=== PATIENT | female | born 1995 | race Two or more races ===

== ENCOUNTER 2019-02-26 17:54 | Emergency (ER) | payer OTHER ==
[~2019-02-26] VITALS: Ht 167.6 cm; Wt 117.9 kg
[2019-02-26 18:02] VITALS: BP 132/84
--- NOTE | 2019-02-26 18:05 | NUR ---
ED Nurse Note: pt walked in to ED due to "right pelvic pain" since yesterday. per pt, had left ovary removal surgery on November and pain is similar to that. pt crying during the triage for pain. AAO x4. respirations even and non-labored noted. skin warm to touch. will wait for the further order.
[2019-02-26] MEDS ORDERED: HYDROcodone/Acetamin 5/325 tab ORAL ONE (18:30)
--- NOTE | 2019-02-26 18:57 | Emergency Room Report ---
History of Present Illness General Chief Complaint: Female Urogenital Problems Source: Medical Record Present Illness HPI 23 YO female right intermittent 02/25 in severity right adnexal pain and ttp x 2 days. hx of left salpingectomy s/p left ovarian torsion in November 2018. Denies and denies suspicion of . Denies N/V/F/C. Denies constipation or diarrhea. Denies vaginal D/C or bleeding. Pt. denies abdominal pain or tenderness. Pt. denies dysuria, hematuria, or frequency. Pt. denies swollen tender lymph nodes, rashes, genital lesions or hx of STI. Allergies: Coded Allergies: AMOXICILLIN (Verified Allergy, Unknown, rash, 02/26/19) CLAVULANIC ACID (Verified Allergy, Unknown, rash, 02/26/19) Patient History Past Medical History: see triage record Past Surgical History: none, other - Left salpingectomy November 2018 Last Menstrual Period: 02/10/19 Now: No Reviewed Nursing Documentation: PMH: Agreed; PSxH: Agreed Nursing Documentation-PMH Past Medical History: No History, Except For Hx Asthma: Yes Review of Systems All Other Systems: negative except mentioned in HPI Physical Exam Vital Signs Date Time Temp Pulse Resp B/P (MAP) Pulse Ox O2 Delivery O2 Flow Rate FiO2 02/26/19 18:02 98.4 103 18 132/84 (100) 96 Room Air Sp02 EP Interpretation: reviewed, normal General Appearance: no apparent distress, alert, GCS 15, non-toxic Head: normocephalic, atraumatic Eyes: bilateral eye normal inspection, bilateral eye PERRL ENT: hearing grossly normal, normal voice Neck: full range of motion Respiratory: lungs clear, normal breath sounds, speaking full sentences Cardiovascular #1: regular rate, rhythm Gastrointestinal: normal bowel sounds, non tender, soft, non-distended, no guarding Rectal: deferred Genitourinary: normal inspection, no CVA tenderness, other - Right adnexal TTP , no palpable LAD Musculoskeletal: back normal, gait/station normal, normal range of motion, non- tender Neurologic: alert, oriented x3, responsive, motor strength/tone normal, sensory intact, speech normal, grossly normal Psychiatric: judgement/insight normal Skin: no rash Lymphatic: no adenopathy Medical Decision Making PA Attestation Dr. Merlos is my supervising Physician whom patient management has been discussed with. Diagnostic Impression: Primary Impression: Adnexal pain Additional Impression: Free fluid in pelvis ER Course 23 YO female right intermittent 10/10 in severity right adnexal pain and ttp x 2 days. hx of left salpingectomy s/p left ovarian torsion in November 2018. Denies and denies suspicion of . Denies N/V/F/C. Denies constipation or diarrhea. Denies vaginal D/C or bleeding. Pt. denies abdominal pain or tenderness. Pt. denies dysuria, hematuria, or frequency. Pt. denies swollen tender lymph nodes, rashes, genital lesions or hx of STI. Ddx considered but are not limited to Diverticulitis, acute appy, ovarian torsion, ectopic , PID tubo-ovarian abscess, ovarian cyst. Vital signs: are WNL, pt. is afebrile H&PE are most consistent with possible ovarian cyst, however due to presentation will r/o torsion, ectopic, and stone. ORDERS: -UA:WNL -URINE HCG:Negative -Pelvic US Complete: "Pelvic Free fluid near right ovary, normal flow to the right ovary which has normal follicles. left ovary is surgically absent." Per official radiology report- Please see report for specific details. ED INTERVENTIONS: - 60mg IM Toradol - 5mg [place] DISCHARGE: At this time pt. is stable for d/c to home. Will provide printed patient care instructions, and any necessary prescriptions. Care plan and follow up instructions have been discussed with the patient prior to discharge. Labs Test 02/26/19 20:00 Urine Color Pale yellow Urine Appearance Clear Urine pH 6 (4.5-8.0) Urine Specific [place] 1.005 (1.005-1.035) Urine Protein Negative (NEGATIVE) Urine Glucose (UA) Negative (NEGATIVE) Urine Ketones Negative (NEGATIVE) Urine Blood 2+ (NEGATIVE) Urine Nitrite Negative (NEGATIVE) Urine Bilirubin Negative (NEGATIVE) Urine Urobilinogen Normal MG/DL (0.0-1.0) Urine Leukocyte Esterase Negative (NEGATIVE) Urine RBC 0-2 /HPF (0 - 2) Urine WBC 0-2 /HPF (0 - 2) Urine Squamous Epithelial Cells Few /LPF (NONE/OCC) Urine Bacteria Few /HPF (NONE) Urine HCG, Qualitative Negative (NEGATIVE) CT/MRI/US Diagnostic Results CT/MRI/US Diagnostic Results : Imaging Test Ordered: Pelvic US Impression " Retroverted uterus normal appearance, normal endometrium, left ovary is surgically absent, trace fluid adjacent to the right ovary with normal follicles. No adnexal mass." Per official radiology report- Please see report for specific details. Last Vital Signs Date Time Temp Pulse Resp B/P (MAP) Pulse Ox O2 Delivery O2 Flow Rate FiO2 02/26/19 18:02 98.4 103 18 132/84 96 Room Air Status: improved Disposition: HOME, SELF-CARE Condition: Stable Scripts Hydrocodone Bit/Acetaminophen 5-325* (NORCO 5-325*) 1 Each Tablet 1 TAB ORAL Q6H PRN for For Pain, #3 TAB 0 Refills Prov: Elis Steen 02/26/19 Ibuprofen* (MOTRIN*) 600 Mg Tablet 600 MG ORAL THREE TIMES A DAY, #30 TAB 0 Refills Prov: Elis Steen 02/26/19 Patient Instructions: Ovarian Cyst, [id number] Additional Instructions: Take medications as directed. Follow up with a OBGYN within 3 days, even if your symptoms have resolved. Return sooner to ED if new symptoms occur, or current symptoms become worse. - Please note that this Emergency Department Report was dictated using [employer] engineer technology software, occasionally this can lead to erroneous entry secondary to interpretation by the dictation equipment. Elis Steen Feb 26, 2019 18:57
--- NOTE | 2019-02-26 19:11 | NUR ---
HAND-OFF: Report given to JOSE ANTONIO DAVIDSON.PT IN US AT THIS TIME.
--- NOTE | 2019-02-26 19:30 | NUR ---
ED Nurse Note: Patient returned from OB - Repeat urine requested and sent to lab
--- NOTE | 2019-02-26 19:51 | Diagnostic Imaging Report ---
EXAM: US Pelvis Transabdominal and Transvaginal, Complete CLINICAL HISTORY: PAIN TECHNIQUE: Real-time complete transabdominal and transvaginal pelvic ultrasound with image documentation. Transvaginal imaging was used for better evaluation of the endometrium and adnexa. COMPARISON: None FINDINGS: Uterus: Retroverted uterus measures approximately 6.7 x 3.6 x 5.7 cm. Normal appearance. Endometrium measures 4.0 mm. Right ovary: Measures 3.4 x 4.2 x 2.4 cm. Normal appearance with follicles. Normal color Doppler flow. Left ovary: Reported left oophorectomy. Other: Trace fluid adjacent to the right ovary. No adnexal mass. IMPRESSION: 1. Status post left oophorectomy. 2. Nonspecific trace fluid adjacent to the right ovary. Otherwise normal uterus and right ovary.
[2019-02-26 20:33] LABS: APPEARANCE,URINE CLEAR; BILIRUBIN, URINE NEGATIVE (NEGATIVE); COLOR,URINE PALE YELLOW; GLUCOSE, URINE (UA) NEGATIVE (NEGATIVE); KETONES,URINE NEGATIVE (NEGATIVE); LEUKOCYTE ESTERASE ,URINE NEGATIVE (NEGATIVE); NITRITE,URINE NEGATIVE (NEGATIVE); PH,URINE 6 (4.5-8.0); PROTEIN,URINE NEGATIVE (NEGATIVE); UROBILINOGEN,URINE NORMAL MG/DL (0.0-1.0)
[2019-02-26] MEDS ORDERED: Ketorolac 30mg Inj IM ONE (20:45)
[2019-02-26] MEDS ORDERED: IBUPROFEN600 MG ORAL (20:46)
[2019-02-26] MEDS ORDERED: NORCO 5-325 TA1 EACH ORAL (20:46)
[2019-02-26 21:15] VITALS: BP 146/86
--- NOTE | 2019-02-26 21:15 | NUR ---
ER DISCHARGE NOTE: Patient is cleared to be discharged per ERMD, pt is aox4, on room air, with stable vital signs. pt was given dc and prescription instructions, pt was able to verbalize understanding, pt id band removed without complications. pt is able to ambulate with steady gait. pt took all belongings. Patient accompanied by cousinn and family member at discharge. Patient reports improved pain score.
== END 2019-02-26 21:15 | disposition home or self-care (01) ==
LOC: EMR 19:30
DX: R10.2 Pelvic and perineal pain (principal); Z90.721 Acquired absence of ovaries, unilateral; J45.909 Unspecified asthma, uncomplicated; Z88.1 Allergy status to other antibiotic agents; Z88.8 Allergy status to other drugs, medicaments and biological substances
CPT/HCPCS: 76830; 76856; 81003; 81025; 96372; 99284; J1885